=== PATIENT | male | born 1985 | race Hispanic/Latino ===

== ENCOUNTER 2017-04-09 15:45 | Emergency (ER) | payer MEDICARE, MEDICAID ==
[~2017-04-09 15:45] MED LIST: Iopamidol 370 76% 100 ML VIAL ONE
[2017-04-09 16:27] LABS: #Basophils 0.1 thou/uL (0.0-0.2); #Eosinphils 0.2 thou/uL (0.0-0.7); #Lymphocytes 2.1 thou/uL (1.20-3.40); #Monocytes 0.9 thou/uL (0.11-0.59); #Neutrophils 12.3 thou/uL (1.40-6.50); %Basophils 0.5 % (0.0-1.0); %Eosinophils 1.4 % (0.0-10.0); %Lymphocytes 13.3 % (21.0-51.0); %Monocytes 5.9 % (0.0-10.0); Hematocrit 44.2 % (42.0-52.0); Mean Platelet Volume 7.2 fL (7.4-10.4); Red Blood Cell (RBC) Count 4.78 mill/uL (4.70-6.10); White Blood Cell (WBC) Count 15.6 thou/uL (4.8-10.8)
[2017-04-09 16:39] LABS: Lactic Acid - Sepsis 0.9 mmol/L (0.5-2.2)
[2017-04-09 16:46] LABS: ALT (SGPT) 21 U/L (8-55); AST (SGOT) 26 U/L (5-34); Alkaline Phosphatase 68 U/L (40-150); Anion Gap 12 mmol/L (10-20); BUN (Urea Nitrogen) 13 mg/dL (8.9-20.6); Bilirubin, Total 0.3 mg/dL (0.2-1.2); CK (CPK) 208 U/L (30-200); Calc. Creatinine Clearance 0 mL/min (70-130); Calcium 8.7 mg/dL (7.8-10.44); Carbon Dioxide 29 mmol/L (22-29); Chloride 104 mmol/L (98-107); Estimated GFR-MDRD Greater than 90; Globulin 2.3 g/dL (2.4-3.5); Protein, Total 5.8 g/dL (6.0-8.3); Troponin I Less than 0.010 ng/mL (< 0.028)
[2017-04-09 17:04] LABS: Bilirubin Negative (Negative); Blood, Urine Negative (Negative); Glucose, Urine (Dipstick) Negative (Negative); Ketone, Urine Negative (Negative); Nitrite Negative (Negative); Protein, Urine (Dipstick) Negative (Neg-Trace); Urobilinogen 0.2 mg/dL (0.2-1.0)
--- NOTE | 2017-04-09 17:14 | CT ---
CHEST CT WITH CONTRAST LIMITED CT OF THE THORACIC SPINE 04/09/17 HISTORY: Chest trauma. Chest pain. 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 Pain is ex acerbated by breathing. COMPARISON: 04/20/11. TECHNIQUE: Postcontrast chest CT is performed in the axial plane. Coronal reformatted images are submitted for i nterpretation. Limited CT of the thoracic spine is performed with reformatted images. The trachea and central bronchi are patent. No masses or consolidation. No pleural effusion. No pneumothorax. No mediastinal mass, lymphadenopathy or hematoma. Residual thymic tissue in the anterior mediastinum is normal. The heart size is normal. No significant pericardial fluid,. The thoracic aorta and upper abdominal aorta has normal caliber. No periaortic fat stranding. The visualized solid organs are unre markable. There are no lytic or blastic lesions in the osseous structures. Sternum is intact. There are no fractures in left or right ribs. THORACIC AND LUMBAR SPINE CT: Vertebral body height is maintained. No fracture. IMPRESSION: 1. No posttraumatic sequela in the chest. 2. Presumed residual thymic tissue in the anterior mediastinum. Findings are unchanged from exam from April 2011. POS: [facility]
== END 2017-04-09 19:10 | disposition left against medical advice (07) ==
LOC: SCSER 15:45
DX: S28.0XXA Crushed chest, initial encounter (principal); F20.9 Schizophrenia, unspecified; F31.9 Bipolar disorder, unspecified; Z87.891 Personal history of nicotine dependence; W23.0XXA Caught, crushed, jammed, or pinched between moving objects, initial encounter; Y92.69 Other specified industrial and construction area as the place of occurrence of the external cause; Y99.0 Civilian activity done for income or pay
CPT/HCPCS: 36415; 71260; 80053; 81003; 82550; 82553; 83605; 84484; 85025; 93005; 96360

== ENCOUNTER 2017-05-19 19:01 | Emergency (ER) | payer MEDICARE, MEDICAID | END 2017-05-19 19:21 | disposition home or self-care (01) | LOC: SCSER 19:01 | DX: J32.9 Chronic sinusitis, unspecified (principal); F31.9 Bipolar disorder, unspecified; F20.9 Schizophrenia, unspecified; Z87.891 Personal history of nicotine dependence | CPT/HCPCS: 99282 ==

== ENCOUNTER 2017-07-28 13:51 | Emergency (ER) | payer MEDICARE, MEDICAID | END 2017-07-28 14:25 | disposition home or self-care (01) | LOC: SCSER 13:51 | DX: J34.0 Abscess, furuncle and carbuncle of nose (principal); F31.9 Bipolar disorder, unspecified; F20.9 Schizophrenia, unspecified; Z87.891 Personal history of nicotine dependence | CPT/HCPCS: 99283 ==

== ENCOUNTER 2017-10-31 14:13 | Emergency (ER) | payer MEDICARE, MEDICAID ==
[2017-10-31] MEDS ORDERED: Bacitracin Zinc 1 Packet ONE (14:42)
== END 2017-10-31 14:54 | disposition home or self-care (01) ==
LOC: SCSER 14:13
DX: J34.0 Abscess, furuncle and carbuncle of nose (principal); F31.9 Bipolar disorder, unspecified; F20.9 Schizophrenia, unspecified; Z87.891 Personal history of nicotine dependence

== ENCOUNTER 2017-10-31 19:09 | Emergency (ER) | payer MEDICARE, MEDICAID ==
[2017-10-31] MEDS ORDERED: Sterile Water 10 ML ONE (19:18)
[2017-10-31] MEDS ORDERED: Famotidine/PF 20 mg/2ml Vial ONE (19:19)
[2017-10-31] MEDS ORDERED: diphenhydrAMINE 50 MG/ML VIAL ONE (19:19)
[2017-10-31] MEDS ORDERED: methylPREDNISolone Sod Succ/PF 125 MG/2 ML VIAL ONE (19:19)
== END 2017-10-31 20:22 | disposition home or self-care (01) ==
LOC: SCSER 19:09
DX: J02.9 Acute pharyngitis, unspecified (principal); R22.0 Localized swelling, mass and lump, head; T37.0X5A Adverse effect of sulfonamides, initial encounter; F31.9 Bipolar disorder, unspecified; F20.9 Schizophrenia, unspecified; Z87.891 Personal history of nicotine dependence
CPT/HCPCS: 99283; A4216; J1200; J2930; S0028

== ENCOUNTER 2018-05-12 19:10 | Emergency (ER) | payer MEDICARE, MEDICAID | END 2018-05-12 19:49 | disposition home or self-care (01) | LOC: SCSER 19:10 | DX: L03.221 Cellulitis of neck (principal); S91.312D Laceration without foreign body, left foot, subsequent encounter; I10 Essential (primary) hypertension; F31.9 Bipolar disorder, unspecified; F20.9 Schizophrenia, unspecified; Z87.891 Personal history of nicotine dependence | CPT/HCPCS: 99283 ==

== ENCOUNTER 2018-12-11 13:33 | Emergency (ER) | payer MEDICAID, MEDICARE, SELFPAY ==
[2018-12-11] MEDS ORDERED: Adacel (T-DAP) 0.5 ML SYRINGE ONE (14:26)
[2018-12-11] MEDS ORDERED: Bacitracin 1 PK ONE (14:27)
== END 2018-12-11 14:44 | disposition home or self-care (01) ==
LOC: ERS 13:33
DX: T22.252A Burn of second degree of left shoulder, initial encounter (principal); T22.251A Burn of second degree of right shoulder, initial encounter; T20.20XA Burn of second degree of head, face, and neck, unspecified site, initial encounter; F31.9 Bipolar disorder, unspecified; F20.9 Schizophrenia, unspecified; Z87.891 Personal history of nicotine dependence; Z79.899 Other long term (current) drug therapy; W40.1XXA Explosion of explosive gases, initial encounter
CPT/HCPCS: 16020; 90471; 90715